=== PATIENT | male | born 1940 | race Hispanic/Latino ===

== ENCOUNTER 2023-05-19 19:57 | Observation (INO) | payer MEDICARE ==
[~2023-05-19] VITALS: Ht 157.5 cm; Wt 81.6 kg
[~2023-05-19 19:57] MED LIST: AMLO-257 PO; ASCO500C18 PO; ASPI-1197 PO; ATOR20TA65 PO; CHOL100040 PO; FERR-72 PO; FINA5TAB41 PO; FOLI1TAB85 PO; FURO20TA4 PO; ISOS20TA85 PO; METO50TA18 PO; PANT40TA54 PO; SERT-438 PO; TAMS-1 PO
[2023-05-19 20:26] LABS: BASOPHILS # (AUTO) 0.03 K/uL (0.00-0.20); BASOPHILS % (AUTO) 0.2 % (0.0-5.0); EOSINOPHILS # (AUTO) 0.09 K/uL (0.00-0.70); EOSINOPHILS % (AUTO) 0.7 % (0.0-8.0); HEMATOCRIT 34.1 % (42-54); IMMATURE GRANULOCYTE ABSOLUTE 0.09 K/uL (0-1); LYMPHOCYTES # (AUTO) 1.7 K/uL (1.0-4.8); LYMPHOCYTES % (AUTO) 13.5 % (21.0-51.0); MEAN CORPUSCULAR HEMOGLOBIN 25.6 pg (27.0-33.0); MONOCYTES % (AUTO) 8.2 % (3.0-13.0); NEUTROPHILS # (AUTO) 9.6 K/uL (1.8-7.7); NEUTROPHILS % (AUTO) 76.7 % (40.0-77.0); PLATELET COUNT (AUTO) 214 K/uL (130-400); RED BLOOD CELL COUNT(AUTO) 4.26 MIL/uL (4.50-6.20); RED CELL DISTRIBUTION WIDTH 16.4 % (11.0-15.5); WHITE BLOOD COUNT (AUTO) 12.5 K/uL (4.8-10.8)
[2023-05-19] MEDS: ASPIRIN 81MG CHEW TAB PO ONE (20:30)
[2023-05-19 20:36] LABS: CREATININE 1.7 mg/dL (0.5-1.5); POTASSIUM 3.5 mmol/L (3.5-5.1)
[2023-05-19 20:41] LABS: BILIRUBIN,TOTAL 0.5 mg/dL (0.2-1.0); TOTAL PROTEIN, SERUM 7.3 g/dL (6.0-8.3)
[2023-05-20] MEDS ORDERED: ONDANSETRON 4MG INJ IV PRN (01:00)
[2023-05-20] MEDS ORDERED: ACETAMINOPHEN 325 MG TAB PO PRN ×2 (01:00)
[2023-05-20] MEDS ORDERED: NITROGLYCERIN 0.4 MG SL TAB SL PRN (01:00)
[2023-05-20 07:26] LABS: BASOPHILS # (AUTO) 0.02 K/uL (0.00-0.20); BASOPHILS % (AUTO) 0.2 % (0.0-5.0); EOSINOPHILS # (AUTO) 0.09 K/uL (0.00-0.70); EOSINOPHILS % (AUTO) 0.8 % (0.0-8.0); IMMATURE GRANULOCYTE ABSOLUTE 0.06 K/uL (0-1); LYMPHOCYTES # (AUTO) 1.6 K/uL (1.0-4.8); LYMPHOCYTES % (AUTO) 14.3 % (21.0-51.0); MEAN CORPUSCULAR HEMOGLOBIN 25.3 pg (27.0-33.0); MEAN CORPUSCULAR HGB CONC 31.9 g/dL (32.0-36.0); MEAN CORPUSCULAR VOLUME 79.3 fL (79-99); MONOCYTES % (AUTO) 9.1 % (3.0-13.0); NEUTROPHILS # (AUTO) 8.5 K/uL (1.8-7.7); NEUTROPHILS % (AUTO) 75.1 % (40.0-77.0); PLATELET COUNT (AUTO) 196 K/uL (130-400); RED BLOOD CELL COUNT(AUTO) 3.91 MIL/uL (4.50-6.20); RED CELL DISTRIBUTION WIDTH 16.4 % (11.0-15.5); WHITE BLOOD COUNT (AUTO) 11.3 K/uL (4.8-10.8)
[2023-05-20 07:50] LABS: ALBUMIN 2.8 g/dL (3.5-5.0); BILIRUBIN,TOTAL 0.5 mg/dL (0.2-1.0); CREATININE 1.3 mg/dL (0.5-1.5); MAGNESIUM 2.4 mg/dL (1.80-2.40); POTASSIUM 3.6 mmol/L (3.5-5.1); THYROID STIMULATING HORMONE 4.1 uIU/mL (0.36-3.74); TOTAL PROTEIN, SERUM 6.9 g/dL (6.0-8.3)
[2023-05-20 07:59] LABS: B-TYPE NATRIURETIC PEPTIDE 75 pg/mL (0-100)
[2023-05-20] MEDS: ASPIRIN 81 MG EC TAB PO SCH (08:49)
[2023-05-20] MEDS: FAMOTIDINE 20MG TAB PO SCH (08:49)
[2023-05-20] MEDS ORDERED: EPOE10008 IJ (09:09)
[2023-05-20] MEDS ORDERED: FURO-151 PO (09:19)
[2023-05-20 18:49] LABS: HEMATOCRIT 32.7 % (42-54)
[2023-05-20 19:00] VITALS: PULSE 79; RESP 20
[2023-05-20 20:45] VITALS: BP 168/90; PULSE 79; RESP 20
[2023-05-20 20:55] VITALS: O2SAT 96
[2023-05-20] MEDS: ATORVASTATIN 20 MG TABLET PO SCH (21:00)
[2023-05-20] MEDS: AMLODIPINE 5 MG TAB PO SCH (21:00)
[2023-05-20] MEDS: METOPROLOL TARTRATE 50 MG TAB PO SCH (21:00)
[2023-05-20 23:45] LABS: HEMATOCRIT 31.8 % (42-54)
[2023-05-20 23:56] VITALS: BP 163/74; PULSE 75; RESP 20
[2023-05-21 04:00] VITALS: BP 142/69; PULSE 68; RESP 19
[2023-05-21 06:36] LABS: HEMATOCRIT 32.3 % (42-54)
[2023-05-21 08:00] VITALS: BP 145/54; PULSE 72; RESP 18
[2023-05-21 09:00] VITALS: O2SAT 97
[2023-05-21] MEDS: SERTRALINE HCL 50 MG TABLET PO SCH (09:00)
[2023-05-21] MEDS: ASPIRIN 81MG CHEW TAB PO SCH (09:00)
[2023-05-21] MEDS: TAMSULOSIN HCL 0.4 MG CAP.ER.24H PO SCH (09:25)
[2023-05-21] MEDS: FUROSEMIDE 20 MG TABLET PO SCH (09:27)
[2023-05-21] MEDS: ISOSORBIDE MONONITRATE 20 MG TABLET PO SCH (09:27)
[2023-05-21] MEDS: FINASTERIDE 5 MG TABLET PO SCH (09:28)
[2023-05-21] MEDS: PANTOPRAZOLE 40 MG TAB DR PO SCH (09:30)
[2023-05-21 12:00] VITALS: BP 129/55; PULSE 56; RESP 16
[2023-05-21 12:13] LABS: HEMATOCRIT 33.2 % (42-54)
[2023-05-21 16:00] VITALS: BP 114/49; PULSE 65; RESP 20
[2023-05-21] MEDS ORDERED: PANT40TA PO (16:22)
[2023-05-21] MEDS ORDERED: SUCR1ORA15 PO (16:22)
[2023-05-27] MEDS ORDERED: EPOETIN ALFA-EPBX (NON-ESRD) 10,000 UNIT/ML VIAL IJ SCH (09:00)
== END 2023-05-21 17:00 | disposition home or self-care (01) ==
LOC: EDH 19:57 → EDHIP 05-20 00:35 → 3BH 05-20 20:20
PROVIDERS: ADMIT Hospitalist; ATTEND Hospitalist
DX: R07.2 Precordial pain (principal); K92.1 Melena; I13.0 Hypertensive heart and chronic kidney disease with heart failure and stage 1 through stage 4 chronic kidney disease, or unspecified chronic kidney disease; E11.22 Type 2 diabetes mellitus with diabetic chronic kidney disease; N18.9 Chronic kidney disease, unspecified; I50.9 Heart failure, unspecified; D50.0 Iron deficiency anemia secondary to blood loss (chronic); D72.829 Elevated white blood cell count, unspecified; I25.5 Ischemic cardiomyopathy; I25.10 Atherosclerotic heart disease of native coronary artery without angina pectoris; F03.90 Unspecified dementia, unspecified severity, without behavioral disturbance, psychotic disturbance, mood disturbance, and anxiety; E78.00 Pure hypercholesterolemia, unspecified; M19.90 Unspecified osteoarthritis, unspecified site; I24.9 Acute ischemic heart disease, unspecified; N40.0 Benign prostatic hyperplasia without lower urinary tract symptoms; K76.9 Liver disease, unspecified; Z95.5 Presence of coronary angioplasty implant and graft; Z88.0 Allergy status to penicillin; Z79.82 Long term (current) use of aspirin; Z95.1 Presence of aortocoronary bypass graft; Z86.718 Personal history of other venous thrombosis and embolism; Z86.2 Personal history of diseases of the blood and blood-forming organs and certain disorders involving the immune mechanism; Z79.899 Other long term (current) drug therapy
CPT/HCPCS: 99285; 84484 ×4; 80053 ×2; 85025 ×2; 36415 ×3; 71045; 93005; 85014 ×5; 85018 ×5; 84443; 83735; 80061; 83880; 82270; 93306; 82948; 97161; 97530 ×2; G0378 ×38